=== PATIENT | male | born 1980 | race African-American/Black ===

== ENCOUNTER 2020-03-15 06:30 | Emergency (ER) | payer OTHER ==
[~2020-03-15] VITALS: Ht 180.3 cm; Wt 111.1 kg
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
[2020-03-15] MEDS ORDERED: FENTANYL PF 100MCG/2ML AMPUL IM ONE (07:00)
[2020-03-15] MEDS ORDERED: FENTANYL PF 100MCG/2ML AMPUL ONE (07:03)
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
--- NOTE | 2020-03-15 08:33 | NUR ---
PT IS WHEELED TO CT SCAN VIA [facility].
--- NOTE | 2020-03-15 09:00 | NUR ---
SALES BRANCH MANAGER AT BEDSIDE FOR XRAY.
--- NOTE | 2020-03-15 09:19 | NUR ---
TRIED TO CALL PT'S NO ANSWER.
[2020-03-15 09:50] LABS: BASOPHILS % (AUTO) 0.5 % (0.0-2.0); EOSINOPHILS % (AUTO) 0.9 % (0.0-6.0); HEMATOCRIT 48 % (39-51); HEMOGLOBIN 14.6 g/dL (13.5-17.5); LYMPHOCYTES # (AUTO) 1.6 /CMM (0.8-4.8); LYMPHOCYTES % (AUTO) 26.7 % (20.0-44.0); MEAN CORPUSCULAR HGB CONC 31 g/dl (31.0-36.0); MEAN CORPUSCULAR VOLUME 85 fL (80-96); MONOCYTES # (AUTO) 0.4 /CMM (0.1-1.30); MONOCYTES % (AUTO) 6.3 % (2.0-12.0); NEUTROPHILS % (AUTO) 65.6 % (43.0-81.0); PLATELET COUNT (AUTO) 200 /CMM (150-450); RED BLOOD CELL COUNT(AUTO) 5.64 MIL/uL (4.5-6.0); WHITE BLOOD COUNT (AUTO) 6.1 K/uL (4.3-11.0)
[2020-03-15 10:24] LABS: CALCIUM, SERUM 8.6 mg/dL (8.5-10.1); CARBON DIOXIDE 28 mmol/L (21-32); CHLORIDE 100 mmol/L (98-107); CREATININE 1.1 mg/dL (0.6-1.3); GLUCOSE 84 mg/dL (74-106); POTASSIUM 3.5 mmol/L (3.5-5.1); SODIUM SERUM 137 mmol/L (136-145); UREA NITROGEN, BLOOD 16 mg/dL (7-18)
--- NOTE | 2020-03-15 10:38 | NUR ---
CALLED [facility] AGAIN ADDENDUM WILL BE FAXED TO US.
--- NOTE | 2020-03-15 11:52 | NUR ---
CALLED PT'S [facility] ETA 35MINS.
--- NOTE | 2020-03-15 12:42 | NUR ---
IV removed. Catheter intact and site benign. Pressure and 4x4 applied to site. No bleeding noted. Patient discharged to home in stable condition. Written and verbal after care instructions given. Patient verbalizes understanding of instruction.
[2020-03-15 12:44] VITALS: BP 138/84
== END 2020-03-15 12:45 | disposition home or self-care (01) ==
LOC: ER 06:34
DX: D32.9 Benign neoplasm of meninges, unspecified (principal); M54.2 Cervicalgia; M25.511 Pain in right shoulder; M25.521 Pain in right elbow; V49.49XA Driver injured in collision with other motor vehicles in traffic accident, initial encounter; Y93.89 Activity, other specified; Y92.413 State road as the place of occurrence of the external cause; Y99.8 Other external cause status
CPT/HCPCS: 36415; 70450; 71045; 72125; 73030; 73080; 80048; 84484; 85025; 85730; 86850; 93005; 96372; 99285; J3010